=== PATIENT | female | born 1965 | race Caucasian/White ===

== ENCOUNTER 2024-03-29 06:57 | Day surgery (SDC) | payer OTHER ==
[~2024-03-29] VITALS: Ht 160 cm; Wt 64.9 kg
[2024-03-29] MEDS ORDERED: MEPERIDINE 100 MG INJ. 100 MG/ML VIAL ONE (07:18)
[2024-03-29] MEDS ORDERED: SIMETHICONE 40 MG/0.6 ML ML ONE (07:18)
[2024-03-29] MEDS ORDERED: MIDAZOLAM HCL 5 MG/5 ML VIAL ONE ×2 (07:18→09:11)
[2024-03-29] MEDS ORDERED: DIPHENHYDRAMINE INJ 50 MG/ML VIAL ONE (09:08)
[2024-03-29] MEDS ORDERED: ONDANSETRON HCL 4 MG/2 ML VIAL ONE (09:26)
[2024-03-29 11:43] VITALS: O2SAT 98
[2024-03-29 15:09] VITALS: BP_SYST 133; PULSE 96; RESP 22
== END 2024-03-29 10:43 | disposition home or self-care (01) ==
LOC: SMU 06:57 → SDS 06:57 → EDBD 10:45
PROVIDERS: ATTEND Student in an Organized Health Care Education/Training Program
DX: Z12.11 Encounter for screening for malignant neoplasm of colon (principal); K57.30 Diverticulosis of large intestine without perforation or abscess without bleeding; K63.89 Other specified diseases of intestine; K64.4 Residual hemorrhoidal skin tags; K64.8 Other hemorrhoids; I10 Essential (primary) hypertension; E11.9 Type 2 diabetes mellitus without complications; E78.5 Hyperlipidemia, unspecified; Z79.84 Long term (current) use of oral hypoglycemic drugs; Z79.899 Other long term (current) drug therapy
CPT/HCPCS: 45378; J1200; J2175; J2250; J2405